=== PATIENT | male | born 1995 | race African-American/Black ===

== ENCOUNTER 2020-09-28 14:24 | Emergency (ER) | payer SELFPAY ==
[~2020-09-28] VITALS: Ht 180.3 cm; Wt 105.0 kg
[2020-09-28 17:57] VITALS: BP 113/67
== END 2020-09-28 19:18 | disposition left against medical advice (07) ==
LOC: ER 14:24
DX: G43.909 Migraine, unspecified, not intractable, without status migrainosus (principal); Z53.21 Procedure and treatment not carried out due to patient leaving prior to being seen by health care provider